=== PATIENT | male | born 1965 | race Caucasian/White ===

== ENCOUNTER 2017-07-27 09:30 | Day surgery (SDC) | payer OTHER ==
[2017-07-27] MEDS ORDERED: LACTATED RINGERS 1,000 ML IV ONE ×2 (09:57→12:16)
[2017-07-27] MEDS ORDERED: MIDAZOLAM 2 MG/2 ML VIAL IVP ONE (12:15)
[2017-07-27] MEDS ORDERED: PROPOFOL 200 MG/20 ML VIAL IVP ONE (12:15)
[2017-07-27] MEDS ORDERED: LIDOCAINE-MPF 2% 5 ML VIAL IM ONE (12:15)
[2017-07-27] MEDS ORDERED: ePHEDrine 50 MG/ML VIAL IVP ONE (12:15)
[2017-07-27 13:38] VITALS: BP 118/69
--- NOTE | 2017-07-28 07:33 | PROCEDURE REPORT ---
DATE OF PROCEDURE: 07/27/2017 00:00:00 PREOPERATIVE DIAGNOSIS: Lung cancer. POSTOPERATIVE DIAGNOSIS: Lung cancer. NAME OF PROCEDURE: Placement of right internal jugular Port-A-Cath catheter under ultrasound guidance . OPERATING SURGEON: Antoine Flores MD ANESTHESIA: Monitored anesthesia care. INDICATIONS FOR PROCEDURE: The patient is a 52-year-old male with lung cancer. He is needing a port t o receive chemotherapy. FINDINGS AT PROCEDURE: A 9.6[employer] Port-A-Cath was placed via the right internal jugul ar vein, with the distal tip at the SVC/atrial junction. There was good aspiration of blood through t he port, with it being flushed easily. PROCEDURE: After informed consent was obtained, the patient was taken to the operating room and place d in the supine position. MAC anesthesia was administered. The patient's right chest and neck were th en prepped and draped in the usual sterile fashion. Using ultrasound, the right internal jugular vein was then identified. The skin overlying the vein was then injected with local anesthesia. Under ultr asound guidance, an 18-gauge needle was then inserted through the skin and into the internal jugular vein. There was return of dark nonpulsatile blood. A guidewire wire was placed over the needle, and t he needle was withdrawn. An incision was then made at the insertion site. Next, attention was turned to the right chest for the port pocket. The skin in the infraclavicular region was then injected with local anesthesia, with the tract from this area up to the neck incision also injected with local ane sthesia. A transverse incision was then made in the mid clavicular line several centimeters below the clavicle. This incision was then deepened in the subcutaneous tissue down to the fascia. A pocket wa s then developed inferiorly using cautery. The catheter was then trimmed to the appropriate size. It was then connected to the port. The catheter was then tunneled from the port site up into the neck in cision. The port was then flushed. The port was then placed in the pocket and secured to the underlyi ng fascia using 3-0 Prolene suture. A dilator and sheath were placed over the guidewire, and the guid ewire and dilator were removed. The catheter was placed through the sheath, and the peel-away sheath was then removed. There was good aspiration of blood through the port, with it being flushed easily. The subcutaneous tissue was closed using 3-0 Vicryl suture. The skin incisions were closed using a 4- 0 Monocryl subcuticular stitch. Dermabond was then applied. The Thomas needle was then placed through the skin and into the port with good aspiration of blood, with it being flushed easily. The needle wa s left in place and covered with a sterile dressing. The patient was then awakened and taken from the procedure room in stable condition. ESTIMATED BLOOD LOSS: Less than 5 mL. COMPLICATIONS: None. CONDITION OF PATIENT AT END OF PROCEDURE: Stable. SPECIMENS: None. DRAINS/PACKS: None. CLASSIFICATION OF WOUND: Clean. JOB #: [id number] EXT JOB #:[id number]
== END 2017-07-27 09:31 | disposition home or self-care (01) ==
LOC: SDS 09:30
PROVIDERS: ATTEND Surgery
PROC: 0DBL8ZZ Excision of Transverse Colon, Via Natural or Artificial Opening Endoscopic (ICD-10-PCS; 2017-07-27)
PROC: 0DBK8ZZ Excision of Ascending Colon, Via Natural or Artificial Opening Endoscopic (ICD-10-PCS; 2017-07-27)
PROC: 0DBN8ZZ Excision of Sigmoid Colon, Via Natural or Artificial Opening Endoscopic (ICD-10-PCS; 2017-07-27)
PROC: 0DBM8ZZ Excision of Descending Colon, Via Natural or Artificial Opening Endoscopic (ICD-10-PCS; 2017-07-27)
PROC: 0DBP8ZZ Excision of Rectum, Via Natural or Artificial Opening Endoscopic (ICD-10-PCS; principal; 2017-07-27 11:00)
DX: Z12.11 Encounter for screening for malignant neoplasm of colon (principal); D12.2 Benign neoplasm of ascending colon; D12.4 Benign neoplasm of descending colon; D12.5 Benign neoplasm of sigmoid colon; D12.3 Benign neoplasm of transverse colon; D12.8 Benign neoplasm of rectum; I71.2 Thoracic aortic aneurysm, without rupture; F17.210 Nicotine dependence, cigarettes, uncomplicated; J32.9 Chronic sinusitis, unspecified
CPT/HCPCS: 45384; 45385; J7120

== ENCOUNTER 2018-07-18 14:37 | Outpatient (CLI) | payer OTHER ==
[2018-07-18 18:48] LABS: BASOPHILS % (AUTO) 0.4 %; EOSINOPHILS # (AUTO) 0.1 10^3/uL (0.0-0.7); EOSINOPHILS % (AUTO) 2.1 %; HGB - HEMOGLOBIN 15.2 g/dL (14.0-18.0); LYMPHOCYTES # (AUTO) 1.8 10^3/uL (1.5-3.5); LYMPHOCYTES % (AUTO) 25.8 %; MEAN CORPUSCULAR HEMOGLOBIN 33.5 pg (27.0-31.0); MEAN CORPUSCULAR HGB CONC 33.5 g/dL (32.0-36.0); MEAN CORPUSCULAR VOLUME 99.9 fL (80.0-94.0); MEAN PLATELET VOLUME 8.6 fL (7.4-11.4); MONOCYTES # (AUTO) 0.7 10^3/uL (0.0-1.0); MONOCYTES % (AUTO) 9.4 %; NEUTROPHILS # (AUTO) 4.3 10^3/uL (1.5-6.6); NEUTROPHILS % (AUTO) 62.3 %; PLT - PLATELET COUNT 221 10^3/uL (130-450); RED BLOOD COUNT 4.53 10^6/uL (4.70-6.10); WHITE BLOOD COUNT 6.9 x10^3/uL (4.8-10.8)
[2018-07-18 19:05] LABS: ALBUMIN 4.6 g/dL (3.2-5.5); ALBUMIN/GLOBULIN RATIO 1.8 (1.0-2.2); ALKALINE PHOSPHATASE 52 IU/L (42-121); ALT ALANINE AMINOTRANSFERASE 20 IU/L (10-60); AST ASPARTATE AMINOTRANSFERASE 24 IU/L (10-42); BUN - BLOOD UREA NITROGEN 11 mg/dL (6-20); CALCIUM 9.4 mg/dL (8.5-10.3); CARBON DIOXIDE - CO2 28 mmol/L (21-32); CHLORIDE 105 mmol/L (101-111); CHOL/HDL RATIO 3.6 (<5.0); CHOLESTEROL 200 mg/dL; CREATININE 0.9 mg/dL (0.6-1.2); GFR - MDRD 89 (>89); GLUCOSE 105 mg/dL (70-100); HDL CHOLESTEROL 55 mg/dL; LDL CHOLESTEROL,CALCULATED 122 mg/dL; LDL/HDL RATIO 2.2 (<3.6); SODIUM 141 mmol/L (135-145); TOTAL PROTEIN 7.1 g/dL (6.7-8.2); VLDL CHOLESTEROL 23 mg/dL
== END 2018-07-18 14:38 | disposition home or self-care (01) ==
LOC: LAB.WCP 14:37
PROVIDERS: ATTEND Physician Assistant Medical
DX: Z00.00 Encounter for general adult medical examination without abnormal findings (principal); Z12.5 Encounter for screening for malignant neoplasm of prostate
CPT/HCPCS: 36415; 80053; 80061; 83721; 84153; 84443; 85025

== ENCOUNTER 2019-11-18 10:03 | Outpatient (CLI) | payer OTHER ==
--- NOTE | 2019-11-18 15:37 | XRAY Report ---
Reason: RIGHT THUMB PAIN Procedure Date: 11/18/2019 Accession Number: [id number] / [id number] Procedure: WCP - Finger(s) RT CPT Code: Final Report FULL RESULT: EXAM: RIGHT 1st DIGIT RADIOGRAPHY EXAM DATE: 11/18/2019 10:03 AM. CLINICAL HISTORY: RIGHT THUMB PAIN. COMPARISON: None. TECHNIQUE: 3 views. FINDINGS: Bones: Bone island scaphoid. No fracture or bone lesion. Joints: Normal. No subluxations. Soft Tissues: Normal. No soft tissue swelling. IMPRESSION: Normal digit radiography. [facility]
== END 2019-11-18 23:59 | disposition home or self-care (01) ==
LOC: DI.WCP 10:03
PROVIDERS: ATTEND Family Medicine
DX: M79.644 Pain in right finger(s) (principal)
CPT/HCPCS: 73140

== ENCOUNTER 2021-01-26 08:00 | Outpatient (CLI) | payer OTHER ==
[2021-01-26 18:16] LABS: BASOPHILS # (AUTO) 0.1 10^3/uL (0.0-0.1); BASOPHILS % (AUTO) 0.8 %; EOSINOPHILS # (AUTO) 0.2 10^3/uL (0.0-0.7); EOSINOPHILS % (AUTO) 2.1 %; HCT - HEMATOCRIT 45.1 % (42.0-52.0); HGB - HEMOGLOBIN 14.9 g/dL (14.0-18.0); LYMPHOCYTES # (AUTO) 1.7 10^3/uL (1.5-3.5); LYMPHOCYTES % (AUTO) 23.3 %; MEAN PLATELET VOLUME 10.3 fL (7.4-11.4); MONOCYTES # (AUTO) 0.7 10^3/uL (0.0-1.0); MONOCYTES % (AUTO) 9.6 %; NEUTROPHILS # (AUTO) 4.8 10^3/uL (1.5-6.6); NEUTROPHILS % (AUTO) 63.8 %; PLT - PLATELET COUNT 227 10^3/uL (130-450); RED BLOOD COUNT 4.38 10^6/uL (4.70-6.10); RED CELL DISTRIBUTION WIDTH 12.3 % (12.0-15.0); WHITE BLOOD COUNT 7.5 x10^3/uL (4.8-10.8)
[2021-01-26 18:46] LABS: ALBUMIN 4.4 g/dL (3.2-5.5); ALBUMIN/GLOBULIN RATIO 1.5 (1.0-2.2); ALKALINE PHOSPHATASE 48 IU/L (42-121); ALT ALANINE AMINOTRANSFERASE 28 IU/L (10-60); AST ASPARTATE AMINOTRANSFERASE 28 IU/L (10-42); BUN - BLOOD UREA NITROGEN 12 mg/dL (6-20); CALCIUM 9.6 mg/dL (8.5-10.3); CARBON DIOXIDE - CO2 28 mmol/L (21-32); CHLORIDE 100 mmol/L (101-111); CHOL/HDL RATIO 3.1 (<5.0); CHOLESTEROL 205 mg/dL; CREATININE 0.8 mg/dL (0.6-1.2); GFR - MDRD 101 (>89); GLUCOSE 102 mg/dL (70-100); HDL CHOLESTEROL 66 mg/dL; LDL CHOLESTEROL,CALCULATED 114 mg/dL; LDL/HDL RATIO 1.7 (<3.6); POTASSIUM 4.5 mmol/L (3.5-5.0); SODIUM 137 mmol/L (135-145); TOTAL PROTEIN 7.4 g/dL (6.7-8.2); TRIGLYCERIDES 127 mg/dL; VLDL CHOLESTEROL 25 mg/dL
[2021-01-26 20:19] LABS: ESTIMATED AVERAGE GLUCOSE 108 mg/dL (70-100); HEMOGLOBIN A1c% 5.4 % (4.27-6.07)
== END 2021-01-26 23:59 | disposition home or self-care (01) ==
LOC: LAB.WCP 08:00
PROVIDERS: ATTEND Family Medicine
DX: I42.9 Cardiomyopathy, unspecified (principal); R73.01 Impaired fasting glucose; N40.2 Nodular prostate without lower urinary tract symptoms
CPT/HCPCS: 36415; 80053; 80061; 83036; 83721; 84153; 85025

== ENCOUNTER 2021-12-28 08:00 | Outpatient (CLI) | payer OTHER | END 2021-12-28 23:59 | disposition home or self-care (01) | LOC: LAB.N 08:00 | PROVIDERS: ATTEND Family Medicine | DX: J06.9 Acute upper respiratory infection, unspecified (principal); Z20.822 Contact with and (suspected) exposure to COVID-19 ==

== ENCOUNTER 2022-09-08 11:36 | Outpatient (CLI) | payer OTHER ==
--- NOTE | 2022-09-08 13:26 | XRAY Report ---
PROCEDURE: Nasal Bones INDICATIONS: CONTUSION OF NOSE, INITIAL ENCOUNTER TECHNIQUE: 4 views of the nasal bones acquired. COMPARISON: None FINDINGS: Bones: No fractures or dislocations. Nasal septum is midline. Normal nasociliary nerve grooves are noted. Soft tissues: No suspicious soft tissue calcifications. IMPRESSION: Unremarkable nasal bone radiographs. No fracture. Reviewed by: Edgar Encarnacion MD on 09/08/2022 12:25 PM [place] Approved by: Edgar Encarnacion MD on 09/08/2022 12:25 PM [facility] Station ID: [id number]
== END 2022-09-08 11:37 | disposition home or self-care (01) ==
LOC: DI.N 11:36 → DI 11:37
PROVIDERS: ATTEND Family Medicine
DX: S00.33XA Contusion of nose, initial encounter (principal)

== ENCOUNTER 2022-10-09 14:38 | Outpatient (CLI) | payer OTHER ==
--- NOTE | 2022-10-09 17:10 | XRAY Report ---
PROCEDURE: Finger(s) RT INDICATIONS: RIGHT 5TH FINGER INJURY TECHNIQUE: AP hand, 2 views of the fifth finger(s) acquired. COMPARISON: 09/12/2022 FINDINGS: Bones: Tiny radiolucency involving volar aspect of fifth distal phalangeal base concerning for subtle avulsion injury in this area. No other fracture or dislocation. No suspicious bony lesions. Soft tissues: No suspicious soft tissue calcifications. IMPRESSION: Finding is suspicious for a subtle avulsion injury involving volar aspect of fifth distal phalangeal base. No other fracture or dislocation. Reviewed by: Brice Liao MD on 10/09/2022 5:08 PM PST Approved by: Brice Liao MD on 10/09/2022 5:08 PM PST Station ID: [id number]
== END 2022-10-09 14:39 | disposition home or self-care (01) ==
LOC: DI.WOS 14:38
PROVIDERS: ATTEND Orthopaedic Surgery
DX: S67.196A Crushing injury of right little finger, initial encounter (principal)

== ENCOUNTER 2024-06-13 11:52 | Outpatient (CLI) | payer OTHER | END 2024-06-13 11:53 | disposition home or self-care (01) | LOC: LAB 11:52 | PROVIDERS: ATTEND Physician Assistant | DX: Z51.81 Encounter for therapeutic drug level monitoring (principal) | CPT/HCPCS: 36416; 85610 ==

== ENCOUNTER 2024-06-16 12:09 | Outpatient (CLI) | payer OTHER | END 2024-06-16 12:10 | disposition home or self-care (01) | LOC: LAB 12:09 | PROVIDERS: ATTEND Physician Assistant | DX: Z51.81 Encounter for therapeutic drug level monitoring (principal) | CPT/HCPCS: 85610 ==

== ENCOUNTER 2024-06-20 11:08 | Outpatient (CLI) | payer OTHER | END 2024-06-20 11:09 | disposition home or self-care (01) | LOC: LAB 11:08 | PROVIDERS: ATTEND Physician Assistant | DX: Z51.81 Encounter for therapeutic drug level monitoring (principal) | CPT/HCPCS: 36416; 85610 ==

== ENCOUNTER 2024-06-23 10:49 | Outpatient (CLI) | payer OTHER | END 2024-06-23 10:50 | disposition home or self-care (01) | LOC: LAB 10:49 | PROVIDERS: ATTEND Physician Assistant | DX: Z51.81 Encounter for therapeutic drug level monitoring (principal) | CPT/HCPCS: 36416; 85610 ==

== ENCOUNTER 2024-07-14 14:06 | Outpatient (CLI) | payer OTHER | END 2024-07-14 14:07 | disposition home or self-care (01) | LOC: LAB 14:06 | PROVIDERS: ATTEND Physician Assistant | DX: Z51.81 Encounter for therapeutic drug level monitoring (principal) | CPT/HCPCS: 36416; 85610 ==

== ENCOUNTER 2024-07-21 13:58 | Outpatient (CLI) | payer OTHER | END 2024-07-21 13:59 | disposition home or self-care (01) | LOC: LAB 13:58 | PROVIDERS: ATTEND Physician Assistant | DX: Z51.81 Encounter for therapeutic drug level monitoring (principal) | CPT/HCPCS: 36416; 85610 ==